=== PATIENT | female | born 1995 | race Two or more races ===

== ENCOUNTER 2020-05-31 10:30 | Emergency (ER) | payer MEDICAID ==
[~2020-05-31] VITALS: Ht 165.1 cm; Wt 54.5 kg
[~2020-05-31 10:30] MED LIST: NO HOME MEDS
[2020-05-31 10:39] VITALS: BP 135/74
[2020-05-31] MEDS ORDERED: ketorolac tromethamine 15mg/ml inj. IM ONE (11:05)
[2020-05-31] MEDS ORDERED: ACET-2006 PO (11:24)
[2020-05-31] MEDS ORDERED: IBUP-1985 PO (11:24)
[2020-05-31] MEDS ORDERED: LIDO700A32 TOP (11:24)
== END 2020-05-31 11:32 | disposition home or self-care (01) ==
LOC: ER 10:30
DX: M54.5 Low back pain (principal); Z79.899 Other long term (current) drug therapy
CPT/HCPCS: 96372; 99283; J1885